=== PATIENT | female | born 1965 | race Caucasian/White ===

== ENCOUNTER 2023-04-05 12:59 | Outpatient (CLI) | payer BC | END 2023-04-05 13:00 | disposition home or self-care (01) | LOC: BICMAMMO 12:59 | PROVIDERS: ATTEND Physician Assistant | DX: Z12.31 Encounter for screening mammogram for malignant neoplasm of breast (principal); Z80.3 Family history of malignant neoplasm of breast | CPT/HCPCS: 77063; 77067 ==

== ENCOUNTER 2024-04-19 10:49 | Outpatient (CLI) | payer BC | END 2024-04-19 10:50 | disposition home or self-care (01) | LOC: BICCT 10:49 | PROVIDERS: ATTEND Physician Assistant | DX: S22.20XA Unspecified fracture of sternum, initial encounter for closed fracture (principal); N20.0 Calculus of kidney | CPT/HCPCS: 71250 ==